=== PATIENT | male | born 1960 | race Caucasian/White ===

== ENCOUNTER 2016-04-14 07:20 | Emergency (ER) | payer OTHER ==
[~2016-04-14] VITALS: Ht 180.3 cm; Wt 81.8 kg
[~2016-04-14 07:20] MED LIST: ASP81TEC PO; ATRV10T PO; BPR100TCR PO; BUSP15 PO; DSS250 PO; KETO120S TOP; LAMI250T PO; LORA1TAB PO; SILD50TA PO; ZLP10T PO; [UNRECOGNIZED DRUG - CODE] TOP; [UNRECOGNIZED DRUG - CODE] TP
[2016-04-14 07:27] VITALS: BP 114/75; PULSE 81; RESP 26; O2SAT 98
--- NOTE | 2016-04-14 07:32 | ED.REPORT ---
HPI-Chest Pain 40 and Over Date of Service Apr 14, 2016 ED Provider: Joe Boo MD The patient is a 55 year old male with history of coronary artery disease, hypertension, hyperlipidemia, and stroke, who presents to the emergency department complaining of upper back pain that woke him from sleep just prior to arrival. He describes the pain as a "pressure." He has some vague diffuse pain to his chest but his pain is primarily in his back. His pain is similar to his previous heart attack. He took nitroglycerin spray x3 and 81 mg aspirin with relief of the pain. He is unsure if his pain is worse with exertion. He denies any known injury or trauma. At this time his pain is a "3/10." He was last seen on 11/12/2015 with chief complaint of chest pain at which time he had a CTA of his chest with no PE. He had negative serial troponins and EKGs without acute ischemic changes. He refused admission at that time. Most recent stress test was preformed at on 01/18/15 that did show 1 fixed area of reduced activity about the inferior apical region consistent with prior VT. The patient is unwilling to have an IV at this time because he doesn't think he will be staying that long. Nursing Notes Stated Complaint: CHEST PAIN Chief Complaint: Chest Pain Nursing Notes Reviewed: Yes Allergies: Coded Allergies: [id number] Reductase Inhibitor (Verified Allergy, Unknown, itching and Headache, 08/10/14) Scheduled Aspirin-Expunged Drug, Do Not Renew! (Aspirin EC-Expunged Drug, Do Not Renew!) 81 Mg Tablet 81 MG PO DAILY DO NOT CRUSH Atorvastatin-Expunged Drug, Do Not Renew! (Atorvastatin-Expunged Drug, Do Not Renew!) 10 Mg Tablet 10 MG PO DAILY For Cholesterol Management. Bupropion-Expunged Drug, Do Not Renew! (Bupropion SR-Expunged Drug, Do Not Renew !) 100 Mg Tablet 100 MG PO HS DO NOT CRUSH TABLET, TAKE WITH FOOD Bupropion-Expunged Drug, Do Not Renew! (Bupropion SR-Expunged Drug, Do Not Renew !) 100 Mg Tablet 200 MG PO AM DO NOT CRUSH TABLET, TAKE WITH FOOD Buspirone-Expunged Drug, Do Not Renew! (Buspirone-Expunged Drug, Do Not Renew!) 15 Mg Tablet 15 MG PO BID Desonide 0.05% Cream (Desowen 0.05% Cream) 15 Gm Tube 1 APPL TOP BID APPLY TO AFFECTED AREA Docusate Sod-Expunged Drug, Do Not Renew! (Docusate Sod-Expunged Drug, Do Not Renew!) 250 Mg Capsule 250 MG PO BID Ketoconazole (Nizoral Shampoo) 120 Ml Shampoo 1 APPLIC TOP 2X WEEKLY Lorazepam-Expunged Drug, Do Not Renew! (Lorazepam-Expunged Drug, Do Not Renew!) 1 Mg Tablet 1 MG PO DAILY Ointment Base No.104 (HYDROPHILIC OINT-Expunged, Do Not Renew!) 500 Gm Oint...g. 1 APPLIC TP BID Sildenafil Citrate-Expunged Drug, Do Not George (Viagra-Expunged Drug, Do Not Renew!) 50 Mg Tablet 50 MG PO PRN TerBINafine-Expunged Drug, Do Not Renew! (Lamisil-Expunged Drug, Do Not Renew!) 250 Mg Tablet 250 MG PO HS Scheduled PRN Zolpidem-Expunged Drug, Do Not Renew! (Zolpidem-Expunged Drug, Do Not Renew!) 10 Mg Tab 10 MG PO HS PRN PRN For Insomnia General Time Seen by MD: 07:30 Chief Complaint Chest pain Hx Obtained From: Patient Arrived By: Walk-in Sudden in Onset?: Yes Onset Occurred: 16 - 30 minutes ago Symptom Duration: Since onset Location: : Back Quality: Painful Severity: Current: Pain level 3 out of 10 Severity: Maximum: Severe Recent Healthcare: No recent hospitalization Similar Sx Previous: Yes Past Medical History Past Medical History 1. History of acute inferior myocardial infarction with cardiac catheterization at the time in 2010 showing nonobstructive coronary artery disease, secondary to plaque rupture and recannulization of the right coronary artery with elevated cardiac biomarkers at the time. 2. Hypertension. 3. Dyslipidemia. 4. Questionable non insulin diet-controlled diabetes. 5. Anxiety. 6. Posttraumatic stress disorder. 7. 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 Physical Exam Initial Vital Signs Vital Signs (First) Date Time Temp Pulse Resp B/P Pulse Ox O2 Delivery O2 Flow Rate FiO2 04/14/16 07:27 36.4 81 26 114/75 98 Room Air Initial VS: Reviewed Head / Eyes: Atraumatic, Normocephalic, PERRL ENT: Mucous membranes moist, Conjunctiva normal, No scleral icterus Neck: Supple, Non-tender, Full range of motion Lymphatic: No lymphadenopathy Extremities: Vascular intact, Neuro intact, No swelling, No tenderness Skin: Warm, Dry, No cyanosis Neurologic: Alert, Oriented, Nonfocal Psychiatric: Mood/affect normal, Behavior normal, Normal thought content General/Constitutional: Awake, Alert, No acute distress, Cooperative Respiratory / Chest: Atraumatic, Breath sounds NL, Breath sounds = bilat, No respiratory distress, No rales, No rhonchi, No wheezing, No stridor, No chest tenderness Cardiovascular: Heart rate NL, Regular rhythm, Heart sounds NL, No gallop, No murmurs, No rubs, Peripheral circulation NL, Pulses = bilaterally, No gross BP differential Abdomen: Atraumatic, Soft, Non-tender, McBurney's non-tender, No guarding, No rebound, BS normoactive, No distention, No hernia, No palpable mass Back: No midline vertebral tend Reproducible tenderness about the right sub scapular region with palpation. Lower Extremity / Pelvis / MS: Neurologic intact, Vascular intact, No edema No calf swelling or tenderness Interpretation & Diagnostics Lab Results Interpretation Result Diagram: 04/14/16 0747 04/14/16 0747 Test 04/14/16 07:47 04/14/16 07:49 04/14/16 09:19 White Blood Count 6.3th/mm3 (3.8-10.1) Red Blood Count 4.76mil/mm3 (4.40-5.80) Hemoglobin 15.5g/dL (13.8-17.2) Hematocrit 44.1% (41.0-50.0) Mean Corpuscular Volume 92.6fL (81-100) Mean Corpuscular Hemoglobin 32.6pg (27.0-35.0) Mean Corpuscular Hemoglobin Concent 35.1% (32.0-37.0) Red Cell Distribution Width 11.7% (12.3-15.4) Platelet Count 191bil/L (150-400) Neutrophils (%) (Auto) 46.8% (40-74) Lymphocytes (%) (Auto) 40.0% (14-46) Monocytes (%) (Auto) 10.8% (4-12) Eosinophils (%) (Auto) 1.6% (0-5) Basophils (%) (Auto) 0.5% (0-3) Prothrombin Time 10.1sec (8.1-12.5) Prothromb Time International Ratio 0.95ratio Activated Partial Thromboplast Time 25.9sec (22.8-33.0) Sodium Level 138mEq/L (134-144) Potassium Level 3.7mEq/L (3.5-5.2) Chloride Level 100mEq/L (97-108) Carbon Dioxide Level 24mmol/L (18-29) Blood Urea Nitrogen 16mg/dL (6-24) Creatinine 1.33mg/dL (0.76-1.27) Estimat Glomerular Filtration Rate 60mL/min (>59) Glucose Level 98mg/dL (60-99) Calcium Level 9.1mg/dL (8.5-10.1) Magnesium Level 1.9mg/dL (1.6-2.6) Total Bilirubin 0.8mg/dL (0.0-1.2) Aspartate Amino Transf (AST/SGOT) 16U/L (0-50) Alanine Aminotransferase (ALT/SGPT) 18U/L (0-44) Alkaline Phosphatase 71U/L (25-150) Total Protein 6.6g/dL (6.4-8.4) Albumin 4.2g/dL (3.4-5.0) Troponin T 0.010ug/L (0.0-0.011) ECG Interpretation ECG Interpretation: Sinus rhythm with a rate of 80 bpm No T wave abnormalities Borderline ST elevation of less than 1 mm in the inferior leads that is unchanged from prior EKG taken on 11/12/2015 No acute changes on his EKG today Time: 07:30 Interpreted by: ED physician ECG Interpretation: Unchanged from prior EKG Time: 09:23 Interpreted by: ED physician X-Ray Chest Interpretation Interpretation / Wet Read by: Wet read ED physician NL X-Ray Chest Findings: No infiltrate, No acute disease Re-Eval/Medical Decision Med Decision/Clinical Course The patient is a 55 year old male with history of coronary artery disease, hypertension, hyperlipidemia, and stroke, who presents to the emergency department complaining of upper back pain that woke him from sleep just prior to arrival. He describes the pain as a "pressure." He has some vague diffuse pain to his chest but his pain is primarily in his back. His pain is similar to his previous heart attack. He took nitroglycerin spray x3 and 81 mg aspirin with relief of the pain. The patient is a somewhat vague historian and here in the emergency department he refuses IV despite multiple attempts to convince him otherwise both by myself as well as his nurse. He also states that he will not be admitted to the hospital. Upon examination his pain is reproducible with palpation about the subscapular region. Initial EKG was obtained and interpreted by myself as documented above demonstrated no acute ischemic changes when compared to prior studies. I reviewed his previous stress test dated 2014 from the [facility] which demonstrated wall motion defect from previous VT but was otherwise relatively unremarkable. Additionally I reviewed his most recent ER visit from October 2015 during which he presented similarly and refused admission. Serial troponins and EKG were unremarkable at that time. Here in the emergency department I administered 324 mg of aspirin. He remained chest pain-free. Serial troponins and EKGs were unremarkable. I have advised the patient that my recommendation is for admission and further cardiac workup given his risk factors and similarity of pain today to previous VT. Patient declines admission to the hospital. At this time I relatively reassured that the patient is not expressing acute VT though given his history I do feel that he requires additional cardiac risk stratification. He will follow-up with his primary care physician in the coming week. He will continue to take baby aspirin daily. Follow-up and return precautions were reviewed in detail and he was discharged in stable condition. The patient demonstrated decisional capacity and refusing further workup, IV or admission. Source of Hx: Old records Time of Eval: 11:42 Re-Evaluation/Progress Note: Rechecked the patient. Discussed results, diagnosis, and plan for discharge. All questions were addressed. Counseled Regarding: Diagnosis, Lab results, Need for follow-up, When/why to return to ED Discharge & Departure Primary Impression: Chest pain Chest pain type: unspecified Qualified Code: R07.9 - Chest pain, unspecified Additional Impressions: History of VT (myocardial infarction) History of stroke Noncompliance by refusing service Disposition: Home Discharge Condition All VS Reviewed: Yes Condition: Stable Additional Instructions: Thank you for seeking care at emergency room. You were seen today for chest pain. Our primary goal today in the ED was to evaluate you for any life-threatening conditions. Your evaluation was reassuring at this time. . We recommended admission but you did not want to stay in the hospital. You should follow-up with your primary doctor in the next 1-2 days. You should discuss an outpatient stress test. You should return to the ED immediately if you develop recutrrent chest pain, fevers, vomiting, cough, shortness of breath, lightheadedness, weakness or any other concerning signs or symptoms. Thank you for letting us partake in your care today. Referrals: Kun Connelly MD (PCP) Scribe Attestation Portions of this note were transcribed by Bhumi Torres. I, Dr. Boo personally performed the history, physical exam and medical decision-making; I reviewed and confirmed the accuracy of the information in the transcribed note. Signed by: Soledad Ram, 04/14/2016 and 1145. copies to: Kun Connelly MD, Beck O MD Apr 14, 2016 07:31 Bhumi Torres Apr 14, 2016 07:44
[2016-04-14 07:53] LABS: BASOPHILS % (AUTO) 0.5 % (0-3); EOSINOPHILS % (AUTO) 1.6 % (0-5); MONOCYTES % (AUTO) 10.8 % (4-12); Mean Corpuscular Hemoglobin 32.6 pg (27.0-35.0); Mean Corpuscular Volume 92.6 fL (81-100); NEUTROPHILS % (AUTO) 46.8 % (40-74); Platelet Count 191 bil/L (150-400)
[2016-04-14 08:15] LABS: INR 0.95 ratio
[2016-04-14 08:25] LABS: TROPONIN T 0.01 ug/L (0.0-0.011)
[2016-04-14 08:36] LABS: Magnesium 1.9 mg/dL (1.6-2.6)
[2016-04-14 09:28] VITALS: BP 102/54; PULSE 81; RESP 16; O2SAT 98
[2016-04-14 11:26] VITALS: BP 106/54; PULSE 86; RESP 23; O2SAT 98
[2016-04-14 11:46] VITALS: BP 104/72; RESP 19; O2SAT 97
--- NOTE | 2016-04-14 15:13 | DRSVH ---
PROCEDURE: X-RAY CHEST ONE VIEW, PORTABLE ([id number]) INDICATIONS: Chest pain. TECHNIQUE: One view of the chest was acquired. COMPARISON: [facility], CT, CT ANGIO CHEST PE, 11/12/2015, 9:45. [facility], CR, CHEST 1VW (PORTABLE), 03/01/2014, 12:06. [facility], CR, XR CHEST 1VW (PORTABLE), , 8:40. FINDINGS: Surgical changes and devices: None. Lungs and pleura: No pleural effusions or pneumothorax. There is a 9 mm nodular density in the righ t upper lobe just below the anterior first rib. Lungs are otherwise clear. Mediastinum: Mediastinal contours appear normal. Heart size is normal. Bones and chest wall: No suspicious bony lesions. Overlying soft tissues appear unremarkable. IMPRESSION: 1. No acute cardiopulmonary disease. 2. A 9 mm nodular density is seen in the right upper lobe just below the anterior first rib. A follow up CT is suggested for further evaluation. Dictated by: Kwesi Bonilla M.D. on 04/14/2016 at 9:02 Approved by: Kwesi Bonilla M.D. on 04/14/2016 at 9:12
== END 2016-04-14 11:44 | disposition home or self-care (01) ==
LOC: SED 07:20
DX: R07.9 Chest pain, unspecified (principal); M54.9 Dorsalgia, unspecified; I25.10 Atherosclerotic heart disease of native coronary artery without angina pectoris; I10 Essential (primary) hypertension; E78.5 Hyperlipidemia, unspecified; Z86.73 Personal history of transient ischemic attack (TIA), and cerebral infarction without residual deficits; Z87.891 Personal history of nicotine dependence; Z88.8 Allergy status to other drugs, medicaments and biological substances